=== PATIENT | female | born 1995 | race Caucasian/White ===

== ENCOUNTER 2016-11-25 10:22 | Emergency (ER) | payer BC ==
--- NOTE | 2016-11-25 11:30 | C.PDOC ---
History Of Present Illness The patient, a 21 y/o female, presents to the ED for evaluation of right-sided chest pain which began around 2 days ago. Patient states she experiences pain to her right upper chest when she moves her arm. 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 She denies fever, chills, shortness of breath, cough, recent trauma/injury, or upper/lower extremity numbness/ weakness. Time Seen by Provider: 11/25/16 10:46 Chief Complaint (Nursing): Breast Problem History Per: Patient History/Exam Limitations: no limitations Onset/Duration Of Symptoms: Days Current Symptoms Are (Timing): Still Present Additional History Per: Patient Past Medical History Reviewed: Historical Data, Nursing Documentation, Vital Signs Vital Signs: Last Vital Signs Temp 98 F 11/25/16 13:10 Pulse 73 11/25/16 13:10 Resp 16 11/25/16 13:10 BP 101/60 11/25/16 13:10 Pulse Ox 100 11/25/16 13:10 - Medical History PMH: No Chronic Diseases Surgical History: Tonsillectomy Family History: States: Unknown Family Hx - Social History Hx Alcohol Use: No Hx Substance Use: No - Immunization History Hx Tetanus Toxoid Vaccination: Yes Hx Influenza Vaccination: Yes Hx Pneumococcal Vaccination: No Review Of Systems Except As Marked, All Systems Reviewed And Found Negative. Constitutional: Negative for: Fever, Chills Cardiovascular: Positive for: Chest Pain (right-sided, upper) Respiratory: Negative for: Cough, Shortness of Breath Neurological: Negative for: Weakness, Numbness Physical Exam - Physical Exam Appears: Non-toxic, No Acute Distress Skin: Normal Color, Warm, Dry Head: Atraumatic, Normacephalic Eye(s): bilateral: Normal Inspection, EOMI Oral Mucosa: Moist Neck: Normal ROM, Supple Chest: Symmetrical, No Deformity, Tenderness (reproducible to right upper chest on palpation ), No Other (no palpable lumps ) Cardiovascular: Rhythm Regular, No Murmur Respiratory: Normal Breath Sounds, No Rales, No Rhonchi, No Wheezing Gastrointestinal/Abdominal: Soft, No Tenderness, No Guarding, No Rebound Back: Normal Inspection, No Vertebral Tenderness, No Paraspinal Tenderness Extremity: Normal ROM, Capillary Refill (less than 2 seconds) Neurological/Psych: Oriented x3, Normal Speech, Normal Cognition Gait: Steady ED Course And Treatment - Laboratory Results Urine POC: Negative O2 Sat by Pulse Oximetry: 98 (on RA) Pulse Ox Interpretation: Normal - Radiology CXR: Interpreted by Me CXR Interpretation: Yes: No Acute Disease - Other Rad CXR X-Ray: Viewed By Me, Read By Radiologist Interpretation: Accession No. : [id number]. Patient Name / ID : MANJU CUELLAR / [id number]. Exam Date : 11/25/2016 11:25:39 ( Approved ). Study Comment : Sex / Age : F / 21Y. Creator : Lenore Parr MD. Dictator : Lenore Parr MD. Grounds Maintenance Worker : Logistics Account Manager : Lenore Parr MD. Approver2 : Report Date : 11/25/2016 11:55:32. My Comment : . HISTORY: SOB. COMPARISON: None available. TECHNIQUE: Chest PA and lateral. FINDINGS: LUNGS: No focal consolidation. Please note that chest x- ray has limited sensitivity for the detection of pulmonary masses. PLEURA: No significant pleural effusion identified. No definite pneumothorax . CARDIOVASCULAR: The cardiomediastinal silhouette appears within normal limits of size. OSSEOUS STRUCTURES: No acute osseous abnormality identified. VISUALIZED UPPER ABDOMEN: Unremarkable. OTHER FINDINGS: None. IMPRESSION: No focal consolidation, significant pleural effusion, or definite pneumothorax identified. Progress Note: Labs and CXR ordered and reviewed. Treated with motrin 600 mg PO. On re-evaluation feeling better, lungs clear Reassessment Condition: Improved Disposition Counseled Patient/Family Regarding: Studies Performed, Diagnosis, Need For Followup, Rx Given - Disposition Referrals: [facility]Outside[facility] Disposition: HOME/ ROUTINE Disposition Time: 12:45 Condition: STABLE Prescriptions: Naproxen [Naprosyn] 1 tab PO BID PRN #25 tab PRN Reason: Pain Instructions: Chest Wall Pain (ED) Forms: School Excuse - POA Present On Arrival: None - Clinical Impression Clinical Impression: Chest wall pain - PA / MATERIALS BRANCH CHIEF / Resident Statement MD/DO has reviewed & agrees with the documentation as recorded. - Scribe Statement The provider has reviewed the documentation as recorded by the Scribe (Sarah Freeman) All medical record entries made by the Scribe were at my direction and personally dictated by me. I have reviewed the chart and agree that the record accurately reflects my personal performance of the history, physical exam, medical decision making, and the department course for this patient. I have also personally directed, reviewed, and agree with the discharge instructions and disposition.
[2016-11-25 11:54] LABS: RBC URINE 5 /hpf (0-3); URINE BACTERIA OCC (<OCC); URINE BILIRUBIN NEGATIVE (NEGATIVE); URINE BLOOD NEGATIVE (NEGATIVE); URINE COLOR Yellow (YELLOW); URINE GLUCOSE (UA) NORMAL (Normal); URINE KETONE NEGATIVE (NEGATIVE); URINE LEUKOCYTE ESTERASE NEG Leu/uL (Negative); URINE PROTEIN NEGATIVE (NEGATIVE); URINE UROBILINOGEN NORMAL mg/dL (0.2-1.0); WBC URINE 7 /hpf (0-5)
--- NOTE | 2016-11-25 11:57 | RAD ---
HISTORY: SOB COMPARISON: None available. TECHNIQUE: Chest PA and lateral FINDINGS: LUNGS: No focal consolidation. Please note that chest x-ray has limited sensitivity for the detection of pulmonary masses. PLEURA: No significant pleural effusion identified. No definite pneumothorax . CARDIOVASCULAR: The cardiomediastinal silhouette appears within normal limits of size. OSSEOUS STRUCTURES: No acute osseous abnormality identified. VISUALIZED UPPER ABDOMEN: Unremarkable. OTHER FINDINGS: None. IMPRESSION: No focal consolidation, significant pleural effusion, or definite pneumothorax identified.
[2016-11-25 13:18] VITALS: BP 101/60; PULSE 73; RESP 16; TEMP 98
[2016-11-25 18:09] VITALS: O2SAT 98
== END 2016-11-25 13:20 | disposition home or self-care (01) ==
LOC: C.ER 10:22
DX: R07.89 Other chest pain (principal)